=== PATIENT | female | born 1930 | race Caucasian/White ===

== ENCOUNTER 2017-11-08 20:08 | Inpatient (IN) | payer MEDICARE, OTHER ==
[~2017-11-08] VITALS: Ht 165.1 cm; Wt 62.8 kg
[~2017-11-08 20:08] MED LIST: LORTA5 PO; MOTR200T PO; TAB-TAB PO
[2017-11-08 20:12] VITALS: BP 142/84; PULSE 116; RESP 20; TEMP 102.9; O2SAT 95
[2017-11-08] MEDS ORDERED: AZITHROMYCIN INJ 500 MG in SODIUM CHLOR 0.9% 250 ML INJ 250 ML IV STA (20:27)
[2017-11-08] MEDS ORDERED: cefTRIAXone INJ 2,000 MG in SODIUM CHLORIDE 0.9% INJ 100 ML IV STA (20:27)
[2017-11-08] MEDS ORDERED: ACETAMINOPHEN 325 MG TAB PO ONE (20:30)
[2017-11-08] MEDS ORDERED: SODIUM CHLORID 0.9% 500 ML INJ 500 ML IV ONE (20:30)
[2017-11-08 20:34] VITALS: O2SAT 95
[2017-11-08 20:36] VITALS: BP 144/64; PULSE 109; RESP 18; O2SAT 95
--- NOTE | 2017-11-08 20:39 | PD ---
HPI Chief Complaint: Cold / Flu Symptoms Time Seen by Provider: 20:27 Travel History International Travel<30 days: No Contact w/Intl Traveler<30days: No Traveled to known affect area: No History of Present Illness HPI 87-year-old female presents to the emergency department by private transportation the care of her spouse for evaluation of cough and congestion 5 days. Patient recently returned from [place]. Patient does not describe any pleuritic pain. Patient said no lower extremity pain or swelling. Patient states the cough has been nonproductive. Patient has had chills and today was noted to have fever. Patient has no reported significant past medical history other than pneumonia approximately 20 years ago. Patient does not report any chest pain other than her chest wall is sore associated with coughing only has had no report of headache sinus pressure drainage sore throat earache neck pain back pain abdominal pain flank pain or extremity myalgias or arthralgias. Patient states cough has been persistent. Patient has taken NyQuil and Mucinex. Due to persistent symptoms patient contacted her son Dr. Kc who suggested that she come to the emergency room. Patient decided last evening not to come to the emergency room but due to persistent symptoms today arrives for evaluation at this time. [facility] Past Medical History Narrative Medical Heart murmur, pneumonia, hysterectomy, cataract surgery, breast biopsy, wrist surgery; occasional alcohol use; nursing notes reviewed Cancer: No Cardiovascular Problems: Yes (murmur that was discovered in 60's) Diabetes: No Endocrine: No Genitourinary: No Hepatitis: No Hiatal Hernia: No Immune Disorder: No Musculoskeletal: No Neurologic: No Psychiatric: No Reproductive: No Respiratory: Yes (PNEUMONIA) Thyroid Disease: No ?: Not Past Surgical History Abdominal Surgery: No AICD: No Cardiac Surgery: No Ear Surgery: No Endocrine Surgery: No Eye Surgery: Yes (CATARACTS, LENS IMPLANTS.) Genitourinary Surgery: No Gynecologic Surgery: Yes (BREAST BIOPSY, HYSTERECTOMY) Hysterectomy: Yes Joint Replacement: No Oral Surgery: No Pacemaker: No Thoracic Surgery: No Social History Tobacco Use: No Substance Use: No Allergies-Medications (Allergen,Severity, Reaction): Coded Allergies: No Known Allergies (Unverified Allergy, Unknown, 11/08/17) Reported Meds & Prescriptions Reported Meds & Active Scripts Active No Active Prescriptions or Reported Medications Review of Systems Except as stated in HPI: all other systems reviewed are Neg General / Constitutional: Positive: Fever, Chills HENT: Positive: Congestion Cardiovascular: Positive: Chest Pain or Discomfort (With coughing) Respiratory: Positive: Cough, Shortness of Breath (Mild), No: Wheezing Gastrointestinal: No: Nausea, Vomiting, Abdominal Pain Genitourinary: No: Dysuria, Flank Pain Musculoskeletal: No: Myalgias, Arthralgias Skin: No Rash Neurologic: No: Weakness Psychiatric: No: Anxiety Hematologic/Lymphatic: No: Lymph Node Enlargement Physical Exam Narrative GENERAL: Well-developed well-nourished pleasant female in no acute distress no respiratory distress; intermittent coughing; T: 102.9F: RR: 20; HR: 116; BP: 142 /82; O2 sat RA: 95% SKIN: Warm and dry. HEAD: Normocephalic. EYES: No scleral icterus. No injection or drainage. ENT: Airway patent NECK: Supple, trachea midline. No JVD or lymphadenopathy. CARDIOVASCULAR: Increased regular rate and rhythm without murmurs, gallops, or rubs. RESPIRATORY: Breath sounds equal bilaterally. No accessory muscle use. GASTROINTESTINAL: Abdomen soft, non-tender, nondistended. MUSCULOSKELETAL: No cyanosis, or edema. Radial and dorsalis pedis pulses 2+ to palpation bilaterally. BACK: Nontender without obvious deformity. No CVA tenderness. Data Data Last Documented VS Vital Signs Date Time Temp Pulse Resp B/P (MAP) Pulse Ox O2 Delivery O2 Flow Rate FiO2 11/08/17 21:43 99.9 107 18 122/54 (76) 96 Room Air Orders Orders Sepsis Workup Initiated (11/08/17 ) Complete Blood Count With Diff (11/08/17 20:27) Comprehensive Metabolic Panel (11/08/17 20:27) Lactic Acid Sepsis Protocol (11/08/17 20:27) Urinalysis - C+S If Indicated (11/08/17 20:27) Blood Culture (11/08/17 20:27) Chest, Single Ap (11/08/17 20:27) Blood Glucose (11/08/17 20:27) Ecg Monitoring (11/08/17 20:27) Iv Access Insert/Monitor (11/08/17 20:27) Oximetry (11/08/17 20:27) Acetaminophen (Tylenol) (11/08/17 20:30) Ceftriaxone Inj (Rocephin Inj) (11/08/17 20:27) Azithromycin Inj (Zithromax Inj) (11/08/17 20:27) Sodium Chlorid 0.9% 500 Ml Inj (Ns 500 M (11/08/17 20:30) B-Type Natriuretic Peptide (11/08/17 21:22) Electrocardiogram (11/08/17 ) Albuterol-Ipratropium Neb (Duoneb Neb) (11/08/17 21:30) Ckmb (Isoenzyme) Profile (11/08/17 20:50) Troponin I (11/08/17 20:50) Ketorolac Inj (Toradol Inj) (11/08/17 22:15) Ceftriaxone Inj (Rocephin Inj) (11/09/17 20:00) Azithromycin Inj (Zithromax Inj) (11/09/17 21:00) Albuterol-Ipratropium Neb (Duoneb Neb) (11/08/17 22:30) Budeson-Formot 160-4.5 Mcg Inh (Symbicor (11/09/17 09:00) Guaifenesin Er (Mucinex Er) (11/09/17 09:00) Admit To Inpatient (11/08/17 ) Vital Signs (Adult) Q4H (11/08/17 22:23) Activity Oob With Assistance (11/08/17 22:23) Internal Audit Director / Telemetry .CONTINUOUS (11/08/17 22:23) Intake + Output OLEG.QSHIFT (11/08/17 22:23) Sodium Chlor 0.9% 1000 Ml Inj (Ns 1000 M (11/08/17 22:23) Sodium Chloride 0.9% Flush (Ns Flush) (11/08/17 22:30) Sodium Chloride 0.9% Flush (Ns Flush) (11/09/17 09:00) Metoclopramide Inj (Reglan Inj) (11/08/17 22:30) Comprehensive Metabolic Panel (11/09/17 06:00) Complete Blood Count With Diff (11/09/17 06:00) Heparin Inj (Heparin Inj) (11/09/17 09:00) Acetaminophen (Tylenol) (11/08/17 22:30) Acetamin-Hydrocod 325-5 Mg ([place] 5-325 (11/08/17 22:30) Acetamin-Hydrocod 325-10 Mg ([place] 10-32 (11/08/17 22:30) Docusate Sodium-Senna (Stella-Colace) (11/09/17 09:00) Magnesium Hydroxide Liq (Milk Of Magnesi (11/08/17 22:30) Sennosides (Senokot) (11/08/17 22:30) Bisacodyl Supp (Dulcolax Supp) (11/08/17 22:30) Lactulose Liq (Lactulose Liq) (11/08/17 22:30) Inpatient Certification (11/08/17 ) Methylprednisolone So Succ Inj (Solumedr (11/08/17 22:30) Albuterol-Ipratropium Neb (Duoneb Neb) (11/08/17 22:30) Admit Order (Ed Use Only) (11/08/17 ) Internal Audit Director / Telemetry OLEG.Q8H (11/08/17 22:27) Diet Heart Healthy (11/09/17 Breakfast) Activity Oob With Assistance (11/08/17 22:27) Notify Dr: Other (11/08/17 22:27) Labs Laboratory Tests Test 11/08/17 20:50 White Blood Count 13.4 TH/MM3 Red Blood Count 3.68 MIL/MM3 Hemoglobin 10.5 GM/DL Hematocrit 31.4 % Mean Corpuscular Volume 85.2 FL Mean Corpuscular Hemoglobin 28.5 PG Mean Corpuscular Hemoglobin Concent 33.4 % Red Cell Distribution Width 12.7 % Platelet Count 295 TH/MM3 Mean Platelet Volume 6.8 FL Neutrophils (%) (Auto) 85.3 % Lymphocytes (%) (Auto) 8.7 % Monocytes (%) (Auto) 5.5 % Eosinophils (%) (Auto) 0.3 % Basophils (%) (Auto) 0.2 % Neutrophils # (Auto) 11.5 TH/MM3 Lymphocytes # (Auto) 1.2 TH/MM3 Monocytes # (Auto) 0.7 TH/MM3 Eosinophils # (Auto) 0.0 TH/MM3 Basophils # (Auto) 0.0 TH/MM3 CBC Comment DIFF FINAL Differential Comment Blood Urea Nitrogen 13 MG/DL Creatinine 0.76 MG/DL Random Glucose 128 MG/DL Total Protein 7.3 GM/DL Albumin 2.4 GM/DL Calcium Level 9.1 MG/DL Alkaline Phosphatase 112 U/L Aspartate Amino Transf (AST/SGOT) 22 U/L Alanine Aminotransferase (ALT/SGPT) 20 U/L Total Bilirubin 0.4 MG/DL Sodium Level 136 MEQ/L Potassium Level 4.0 MEQ/L Chloride Level 102 MEQ/L Carbon Dioxide Level 24.2 MEQ/L Anion Gap 10 MEQ/L Estimat Glomerular Filtration Rate 72 ML/MIN Lactic Acid Level 1.3 mmol/L Total Creatine Kinase 50 U/L Troponin I LESS THAN 0.02 NG/ML B-Type Natriuretic Peptide 129 PG/ML MDM Medical Decision Making Medical Screen Exam Complete: Yes Emergency Medical Condition: Yes Medical Record Reviewed: Yes Interpretation(s) lactic acid: 1.3, not elevated Last Impressions Chest X-Ray 11/08/172026 Signed Impressions: CONCLUSION: 1. COPD 2. Patchy bilateral airspace disease. CBC & BMP Diagram 11/08/17 20:50 Total Protein 7.3, Albumin 2.4 L, Calcium Level 9.1, Alkaline Phosphatase 112, Aspartate Amino Transf (AST/SGOT) 22, Alanine Aminotransferase (ALT/SGPT) 20, Total Bilirubin 0.4 Vital Signs Date Time Temp Pulse Resp B/P (MAP) Pulse Ox O2 Delivery O2 Flow Rate FiO2 11/08/17 21:43 99.9 107 18 122/54 (76) 96 Room Air 11/08/17 20:36 109 18 144/64 (90) 95 Room Air 11/08/17 20:34 95 Room Air 11/08/17 20:30 112 18 95 Room Air 11/08/17 20:12 102.9 116 20 142/84 (103) 95 Troponin I: Less than 0.02: Elevated; CK total 50, not BNP 129, minimally elevated EKG sinus tachycardia rate 106 septal infarct age indeterminate although noted in 2015 Differential Diagnosis Cough, pneumonia, bronchitis, sepsis; also to consider ACS, PE Narrative Course 87-year-old female with cough 5 days presents to the emergency department with fever mild tachycardia and chills; patient is used [id number] cough medication without symptom relief. Symptoms have worsened recently. Patient will be evaluated for sepsis and community-acquired pneumonia; IV access obtained patient placed on monitoring engineer with continuous pulse oximetry acetaminophen 650 mg by mouth administered Rocephin 2 g IV piggyback ordered along with azithromycin 500 mg IV piggyback ordered a bolus of 500 cc normal saline will be initially administered blood pressure is well controlled and patient reports she has been hydrating well; lactic acid and blood cultures obtained prior to administration of antibiotic; chest x-ray ordered. Patient will meet sepsis criteria based on vital signs and source of infection Sepsis Criteria SIRS Criteria (2 or more): Temp > 100.9 or < 96.8, Heart rate over 90 Sepsis Criteria (SIRS+source): Infect source susp/known (suspected pneumonia) Physician Communication Physician Communication discussed with Dr Alarcon --admit Diagnosis Primary Impression: Sepsis Additional Impressions: Pneumonia COPD (chronic obstructive pulmonary disease) Admitting Information Admitting Physician Requests: Admit Scripts No Active Prescriptions or Reported Meds Tracy Frank MD November 08, 2017 20:39
--- NOTE | 2017-11-08 20:49 | RADRPT ---
EXAM DATE: 11/08/2017 8:45 PM EDT AGE/SEX: 87 years / Female INDICATIONS: Fever, cough, and chest pain. CLINICAL DATA: This is the patient's initial encounter. Patient reports that signs and symptoms have been present for 4 - 6 days and indicates a pain score of 9/10. MEDICAL/SURGICAL HISTORY: None. . Hysterectomy. Left wrist. COMPARISON: No prior [facility] exams available for comparison. FINDINGS: Lungs are hyperinflated. Patchy airspace disease is identified in both lungs. Heart is normal in size. Osseous structures are intact. CONCLUSION: 1. COPD 2. Patchy bilateral airspace disease. Electronically signed by: Jesús Mclaughlin MD 11/08/2017 8:48 PM EDT
[2017-11-08 21:02] LABS: AUTOMATED NEUTROPHIL # 11.5 TH/MM3 (1.8-7.7); BASOPHIL % 0.2 % (0.0-2.0); EOSINOPHIL % 0.3 % (0.0-4.0); HEMATOCRIT 31.4 % (35.0-46.0); HEMOGLOBIN 10.5 GM/DL (11.6-15.3); LYMPH % 8.7 % (9.0-44.0); LYMPHOCYTE # 1.2 TH/MM3 (1.0-4.8); MEAN CELL VOLUME 85.2 FL (80.0-100.0); MEAN CORPUSCULAR HEMOGLOBIN 28.5 PG (27.0-34.0); MEAN CORPUSCULAR HGB CONC 33.4 % (32.0-36.0); MEAN PLATELET VOLUME 6.8 FL (7.0-11.0); MONO % 5.5 % (0.0-8.0); MONOCYTE # 0.7 TH/MM3 (0-0.9); NEUT % 85.3 % (16.0-70.0); PLATELET COUNT 295 TH/MM3 (150-450); RED BLOOD COUNT 3.68 MIL/MM3 (4.00-5.30); RED CELL DISTRIBUTION WIDTH 12.7 % (11.6-17.2); WHITE BLOOD COUNT 13.4 TH/MM3 (4.0-11.0)
[2017-11-08 21:12] LABS: CHLORIDE 102 MEQ/L (98-107); SODIUM (NA) 136 MEQ/L (136-145)
[2017-11-08 21:16] LABS: ALBUMIN 2.4 GM/DL (3.4-5.0); BICARBONATE 24.2 MEQ/L (21.0-32.0); BLOOD UREA NITROGEN 13 MG/DL (7-18); CALCIUM 9.1 MG/DL (8.5-10.1); GLUCOSE,RANDOM 128 MG/DL (74-106)
[2017-11-08 21:19] LABS: ALT (GPT) 20 U/L (10-53); AST (GOT) 22 U/L (15-37)
[2017-11-08 21:20] LABS: CREATININE 0.76 MG/DL (0.50-1.00); GLOMERULAR FILTRATION RATE 72 ML/MIN (>89)
[2017-11-08 21:21] LABS: TOTAL BILIRUBIN ADULT 0.4 MG/DL (0.2-1.0); TOTAL PROTEIN 7.3 GM/DL (6.4-8.2)
[2017-11-08 21:22] LABS: ALKALINE PHOSPHATASE 112 U/L (45-117)
[2017-11-08] MEDS ORDERED: RESP: ALBUTEROL 2.5 MG/IPRATROPIUM 0.5 MG NEB (SCH) NEB ONE ×2 (21:30→22:30)
[2017-11-08 21:43] VITALS: BP 122/54; PULSE 107; RESP 18; TEMP 99.9; O2SAT 96
[2017-11-08 21:44] LABS: TROPONIN I LESS THAN 0.02 NG/ML (0.02-0.05)
[2017-11-08] MEDS ORDERED: KETOROLAC TROMETHAMINE 30 MG/ML (IVP) VIAL IV PUSH ONE (22:15)
[2017-11-08] MEDS ORDERED: METOCLOPRAMIDE HCL 10 MG/2 ML VIAL IV PUSH PRN (22:30)
[2017-11-08] MEDS ORDERED: ACETAMINOPHEN/HYDROcodone 325 MG/10 MG TAB PO PRN (22:30)
[2017-11-08] MEDS ORDERED: LACTULOSE SYRUP 20 GM/30 ML CUP PO PRN (22:30)
[2017-11-08] MEDS ORDERED: MAGNESIUM HYDROXIDE SUSP 30 ML CUP PO PRN (22:30)
[2017-11-08] MEDS ORDERED: methylPREDNISolone SOD SUCC 125 MG/2 ML VIAL IV PUSH ONE (22:30)
[2017-11-08] MEDS ORDERED: ACETAMINOPHEN 325 MG TAB PO PRN (22:30)
[2017-11-08] MEDS ORDERED: SENNOSIDES 8.6 MG TAB PO PRN (22:30)
[2017-11-08] MEDS ORDERED: BISACODYL 10 MG SUPP RECTAL PRN (22:30)
[2017-11-08] MEDS ORDERED: SODIUM CHLORIDE 0.9% FLUSH 10 ML FLUSH IV FLUSH PRN (22:30)
[2017-11-08] MEDS ORDERED: ACETAMINOPHEN/HYDROcodone 325 MG/5 MG TAB PO PRN (22:30)
[2017-11-08] MEDS ORDERED: RESP: ALBUTEROL 2.5 MG/IPRATROPIUM 0.5 MG NEB (PRN) NEB (22:30)
[2017-11-08] MEDS: SODIUM CHLOR 0.9% 1000 ML INJ 1,000 ML IV SCH (22:55)
[2017-11-08 23:03] VITALS: BP 126/56; PULSE 98; RESP 18; O2SAT 96
[2017-11-08 23:45] VITALS: PULSE 111
[2017-11-09] VITALS (7 sets, daily range): BP systolic 104–119; BP diastolic 51–68; PULSE 84–112; RESP 18–20; TEMP 96–98.8; O2SAT 94–97
[2017-11-09 06:56] LABS: AUTOMATED NEUTROPHIL # 10.7 TH/MM3 (1.8-7.7); BASOPHIL % 0.1 % (0.0-2.0); EOSINOPHIL % 0.2 % (0.0-4.0); HEMATOCRIT 29.4 % (35.0-46.0); HEMOGLOBIN 9.8 GM/DL (11.6-15.3); LYMPH % 5.6 % (9.0-44.0); LYMPHOCYTE # 0.6 TH/MM3 (1.0-4.8); MEAN CELL VOLUME 85.3 FL (80.0-100.0); MEAN CORPUSCULAR HEMOGLOBIN 28.3 PG (27.0-34.0); MEAN CORPUSCULAR HGB CONC 33.2 % (32.0-36.0); MONO % 1.1 % (0.0-8.0); MONOCYTE # 0.1 TH/MM3 (0-0.9); PLATELET COUNT 260 TH/MM3 (150-450); RED BLOOD COUNT 3.45 MIL/MM3 (4.00-5.30); RED CELL DISTRIBUTION WIDTH 12.7 % (11.6-17.2); WHITE BLOOD COUNT 11.4 TH/MM3 (4.0-11.0)
[2017-11-09 07:04] LABS: CHLORIDE 109 MEQ/L (98-107); SODIUM (NA) 141 MEQ/L (136-145)
[2017-11-09 07:10] LABS: ALBUMIN 1.9 GM/DL (3.4-5.0); CALCIUM 8.4 MG/DL (8.5-10.1)
[2017-11-09 07:11] LABS: BICARBONATE 23.9 MEQ/L (21.0-32.0); BLOOD UREA NITROGEN 12 MG/DL (7-18); GLUCOSE,RANDOM 209 MG/DL (74-106)
[2017-11-09 07:13] LABS: ALT (GPT) 15 U/L (10-53); AST (GOT) 15 U/L (15-37); CREATININE 0.74 MG/DL (0.50-1.00); GLOMERULAR FILTRATION RATE 74 ML/MIN (>89)
[2017-11-09 07:15] LABS: TOTAL BILIRUBIN ADULT 0.3 MG/DL (0.2-1.0)
[2017-11-09] MEDS ORDERED: RESP: ALBUTEROL 2.5 MG/IPRATROPIUM 0.5 MG NEB (PRN) NEB (07:15)
[2017-11-09 07:16] LABS: ALKALINE PHOSPHATASE 86 U/L (45-117)
[2017-11-09] MEDS: RESP: ALBUTEROL 2.5 MG/IPRATROPIUM 0.5 MG NEB (SCH) NEB ×3 (07:23→20:28)
[2017-11-09 07:29] LABS: BILIRUBIN, URINE NEG (NEG); BLOOD, URINE SMALL (NEG); GLUCOSE,URINE NEG (NEG); KETONE, URINE NEG (NEG); NITRITE,URINE NEG (NEG); PH, URINE 5.5 (5.0-8.5); URINE COLOR YELLOW (YELLW/STRAW); URINE LEUKOCYTE ESTERASE NEG (NEG)
[2017-11-09 07:44] LABS: SQUAMOUS EPITHELIAL CELL URINE 0-2 /hpf (0-5); WBC, URINE 0-2 /hpf (0-5)
[2017-11-09] MEDS: SODIUM CHLOR 0.9% 1000 ML INJ 1,000 ML IV SCH ×2 (08:23→18:23)
--- NOTE | 2017-11-09 08:44 | HHI.HP ---
[facility] Service [facility] Primary Care Physician Denise Soto MD Admission Diagnosis sepsis; pneumonia; copd Diagnoses: (1) Sepsis Diagnosis: Principal (2) Pneumonia Diagnosis: Principal Chief Complaint: Fever Travel History International Travel<30 Days: No Contact w/Intl Traveler <30 Da: No Traveled to Known Affected Are: No Sepsis Criteria SIRS Criteria (2 or more): Temp > 100.9 or < 96.8, Heart rate over 90, WBC > 57932, < 4000 or > 10% bands Sepsis Criteria (SIRS+source): Infect source susp/known History of Present Illness Written by Rolf Harris, acting as scribe for Dr. Shepard on 11/09/17 at 08: 44. 87-year-old female with no chronic medical illnesses who presented to the emergency department because of fever. Patient indicates that she has had a one half week history of upper respiratory symptoms to include sore throat, hoarseness, nonproductive cough, soreness in her ribs whenever she coughs, fatigue. She has went to [place] to visit family and was returned 1 week ago. Patient states that she was symptomatic during her stay in [place]. When she got home her son Justyna Yamini try to convince her to get evaluated with at least a chest x-ray. She was reluctant to do so. She states that she was at home and was using NyQuil and Mucinex. However her symptoms never improved she had continued fatigue, persistent cough, decreased appetite, continued fever. Yesterday she took her temperature at home with a digital thermometer and it read 107. She went to her and they brought her to the hospital for evaluation. On presentation she had a fever of 102.9. Workup indicated sepsis criteria with pneumonia. ER physician recommended admission for further evaluation and management. This morning the patient states that she is feeling much better. She is a afebrile at this time. She is no longer with sepsis criteria. Patient has responded well to treatment thus far. Patient denies any chest pain, shortness of breath, dyspnea, abdominal pain, diarrhea, constipation, leg pain, lower extremity edema. Review of Systems Constitutional: COMPLAINS OF: Fever, Chills, Change in appetite Ears, nose, mouth, throat: COMPLAINS OF: Throat pain, Hoarseness Respiratory: COMPLAINS OF: Cough Except as stated in HPI: all other systems reviewed are Neg Past Family Social History Past Medical History History of murmur Past Surgical History Hysterectomy Cataract surgery Multiple breast biopsies Left wrist surgery Reported Medications No home medications Allergies: Coded Allergies: No Known Allergies (Unverified Allergy, Unknown, 11/08/17) Family History Family history was reviewed and significant for mother that was in good health, father had colon cancer Social History Patient quit smoking at age 49, prior to that she smoked up to half a pack of cigarettes a day since she was 17 years old. Drinks alcohol occasionally. Denies any illicit drug Physical Exam Vital Signs Vital Signs Date Time Temp Pulse Resp B/P (MAP) Pulse Ox O2 Delivery O2 Flow Rate FiO2 11/09/17 07:40 96.1 88 20 109/64 (79) 95 11/09/17 04:00 97.6 91 20 115/60 (78) 96 11/09/17 00:00 98.8 112 20 104/51 (68) 94 11/08/17 23:45 111 11/08/17 23:28 102 18 96 11/08/17 23:03 98 18 126/56 (79) 96 Room Air 11/08/17 21:43 99.9 107 18 122/54 (76) 96 Room Air 11/08/17 20:36 109 18 144/64 (90) 95 Room Air 11/08/17 20:34 95 Room Air 11/08/17 20:30 112 18 95 Room Air 11/08/17 20:12 102.9 116 20 142/84 (103) 95 Physical Exam GENERAL: Well-developed, well-nourished, in no acute distress. alert and orientated HEENT: Head is normocephalic without any lesions or masses noted. Facial features are symmetric. Eyes: Pupils equal round reactive to light. Extraocular muscles are intact. Conjunctivae were clear. Oropharyngeal: Pharynx without any erythema edema. Tongue is midline without deviation. Buccal mucosa is moist without any masses or lesions NECK: Supple without any masses. Trachea midline no deviation. No JVD, no bruits are appreciated CARDIAC: Regular rhythm, regular rate. S1/S2 are heard. 3/6 ejection murmur noted in aortic and mitral region. No gallops or rubs. LUNGS: Clear to auscultation bilaterally. No wheeze, rhonchi or rales. No use of accessory muscles on inspiration or expiration. ABDOMEN: Soft, nontender. Nondistended. Bowel sounds heard in all 4 quadrants. No organomegaly or masses. Negative rebound, negative guarding EXTREMITIES: No edema, pulses are equal bilaterally. No cyanosis or clubbing NEUROLOGY: Mood and affect appear appropriate. Cranial nerves II through XII grossly intact. Muscle strength 5/5 in upper and lower extremities bilaterally. Deep tendon reflexes are 2+ in upper and lower extremities bilaterally. Laboratory Laboratory Tests Test 11/08/17 20:50 11/09/17 06:07 11/09/17 07:15 White Blood Count 13.4 11.4 Red Blood Count 3.68 3.45 Hemoglobin 10.5 9.8 Hematocrit 31.4 29.4 Mean Corpuscular Volume 85.2 85.3 Mean Corpuscular Hemoglobin 28.5 28.3 Mean Corpuscular Hemoglobin Concent 33.4 33.2 Red Cell Distribution Width 12.7 12.7 Platelet Count 295 260 Mean Platelet Volume 6.8 7.0 Neutrophils (%) (Auto) 85.3 93.0 Lymphocytes (%) (Auto) 8.7 5.6 Monocytes (%) (Auto) 5.5 1.1 Eosinophils (%) (Auto) 0.3 0.2 Basophils (%) (Auto) 0.2 0.1 Neutrophils # (Auto) 11.5 10.7 Lymphocytes # (Auto) 1.2 0.6 Monocytes # (Auto) 0.7 0.1 Eosinophils # (Auto) 0.0 0.0 Basophils # (Auto) 0.0 0.0 CBC Comment DIFF FINAL DIFF FINAL Differential Comment Blood Urea Nitrogen 13 12 Creatinine 0.76 0.74 Random Glucose 128 209 Total Protein 7.3 6.0 Albumin 2.4 1.9 Calcium Level 9.1 8.4 Alkaline Phosphatase 112 86 Aspartate Amino Transf (AST/SGOT) 22 15 Alanine Aminotransferase (ALT/SGPT) 20 15 Total Bilirubin 0.4 0.3 Sodium Level 136 141 Potassium Level 4.0 4.0 Chloride Level 102 109 Carbon Dioxide Level 24.2 23.9 Anion Gap 10 8 Estimat Glomerular Filtration Rate 72 74 Lactic Acid Level 1.3 Total Creatine Kinase 50 Troponin I LESS THAN 0.02 B-Type Natriuretic Peptide 129 Urine Collection Type CATH Urine Color YELLOW Urine Turbidity CLEAR Urine pH 5.5 Urine Specific [place] LESS/EQUAL 1.005 Urine Protein NEG Urine Glucose (UA) NEG Urine Ketones NEG Urine Occult Blood SMALL Urine Nitrite NEG Urine Bilirubin NEG Urine Urobilinogen 0.2 Urine Leukocyte Esterase NEG Urine WBC 0-2 Urine Squamous Epithelial Cells 0-2 Microscopic Urinalysis Comment CULT NOT INDICATED Date/Time Source Procedure Growth Status 11/08/17 20:55 Blood Peripheral Aerobic Blood Culture Pending Received 11/08/17 20:55 Blood Peripheral Anaerobic Blood Culture Pending Received Result Diagram: 11/09/17 0607 11/09/17 0607 Imaging Last Impressions Chest X-Ray 11/08/172026 Signed Impressions: CONCLUSION: 1. COPD 2. Patchy bilateral airspace disease. Septic Shock Reassessment Septic shock perfusion: reassessment completed Caprini VTE Risk Assessment Caprini VTE Risk Assessment: Mod/High Risk (score >= 2) Caprini Risk Assessment Model Point Value = 1 Point Value = 2 Point Value = 3 Point Value = 5 Age 41-60 Minor surgery BMI > 25 kg/m2 Swollen legs Varicose veins or History of unexplained or recurrent spontaneous Oral contraceptives or hormone replacement Sepsis (< 1 month) Serious lung disease, including pneumonia (< 1 month) Abnormal pulmonary function Acute myocardial infarction Congestive heart failure (< 1 month) History of inflammatory bowel disease Medical patient at bed rest Age 61-74 Arthroscopic surgery Major open surgery (> 45 min) Laparoscopic surgery (> 45 min) Malignancy Confined to bed (> 72 hours) Immobilizing plaster cast Central venous access Age >= 75 History of VTE Family history of VTE Factor V Leiden Prothrombin [id number] Lupus anticoagulant Anticardiolipin antibodies Elevated serum homocysteine Heparin-induced thrombocytopenia Other congenital or acquired thrombophilia Stroke (< 1 month) Elective arthroplasty Hip, pelvis, or leg fracture Acute spinal cord injury (< 1 month) Prophylaxis Regimen Total Risk Factor Score Risk Level Prophylaxis Regimen 0-1 Low Early ambulation 2 Moderate Order ONE of the following: *Sequential Compression Device (SCD) *Heparin 5000 units SQ BID 3-4 Higher Order ONE of the following medications: *Heparin 5000 units SQ TID *Enoxaparin/Lovenox 40 mg SQ daily (WT < 150 kg, CrCl > 30 mL/min) *Enoxaparin/Lovenox 30 mg SQ daily (WT < 150 kg, CrCl > 10-29 mL/min) *Enoxaparin/Lovenox 30 mg SQ BID (WT < 150 kg, CrCl > 30 mL/min) AND/OR *Sequential Compression Device (SCD) 5 or more Highest Order ONE of the following medications: *Heparin 5000 units SQ TID (Preferred with Epidurals) *Enoxaparin/Lovenox 40 mg SQ daily (WT < 150 kg, CrCl > 30 mL/min) *Enoxaparin/Lovenox 30 mg SQ daily (WT < 150 kg, CrCl > 10-29 mL/min) *Enoxaparin/Lovenox 30 mg SQ BID (WT < 150 kg, CrCl > 30 mL/min) AND *Sequential Compression Device (SCD) Assessment and Plan Problem List: (1) Sepsis ICD Code: A41.9 - Sepsis, unspecified organism Status: Acute (2) Pneumonia ICD Code: J18.9 - Pneumonia, unspecified organism Status: Acute Assessment and Plan Sepsis, resolved -Patient met criteria on admission with fever, leukocytosis, tachycardia, pneumonia -Chest x-ray did indicate patchy airspace disease -Urinalysis was clear -Patient was started on Rocephin and Zithromax -Blood cultures are pending -Obtain influenza testing Pneumonia -Continue treatment for community acquired pneumonia with Rocephin and Zithromax -Continue nebulizer treatments every 6 hours while awake and every 2 hours as needed -Continue Symbicort -Continue Mucinex -Try to obtain sputum culture Hyperglycemia -No history of diabetes, likely secondary to steroid use -Check hemoglobin A1c DVT prevention -Subcutaneous heparin This note was transcribed by david Harris. I, Dr. Senthil Shepard personally performed the history, physical exam, and medical decision making; and confirmed the accuracy of the information in the transcribed note. Authenticated by Dr. Senthil Shepard on 11/09/17 at 08:44. Code Status Full code Discussed Condition With Patient, nursing staff Physician Certification 2 Midnight Certification Type: Admission for Inpatient Services Order for Inpatient Services The services are ordered in accordance with Medicare regulations or non- Medicare payer requirements, as applicable. In the case of services not specified as inpatient-only, they are appropriately provided as inpatient services in accordance with the 2-midnight benchmark. Estimated LOS (days): 2 days is the estimated time the patient will need to remain in the hospital, assuming treatment plan goals are met and no additional complications. Post-Hospital Plan: Not yet determined Rolf Harris November 09, 2017 08:44 Senthil Shepard MD November 09, 2017 08:45
[2017-11-09] MEDS: SODIUM CHLORIDE 0.9% FLUSH 10 ML FLUSH IV FLUSH SCH ×2 (09:00→21:47)
[2017-11-09] MEDS: BUDESONIDE-FORMOTEROL 160/4.5 MCG INHALER INH SCH ×2 (10:40→22:21)
[2017-11-09] MEDS: DOCUSATE SODIUM 50 MG/SENNA 8.6 MG TAB PO SCH ×2 (10:41→21:46)
[2017-11-09] MEDS: guaiFENesin E.R. 600 MG TAB PO SCH ×2 (10:41→21:46)
[2017-11-09] MEDS: HEPARIN SODIUM - SQ 10,000 UNITS/ML VIAL SQ SCH ×2 (10:41→21:48)
--- NOTE | 2017-11-09 13:59 | EKG ---
Date Performed: 11/08/2017 Time Performed: 21:30:25 PTAGE: 87 years EKG: SINUS TACHYCARDIA WITH SINUS ARRYTHMIA. ATRIAL ABNORMALITY SLIGHT RIGHT VENTRICULAR CONDUCT ION DISTURBANCES POOR INITIAL ANTERIOR FORCES WHICH MAY BE NORMAL VARIANT, CANNOT EXCLUDE OLD ANTEROS EPTAL VT ABNORMAL ECG Compared to PREVIOUS TRACING , sinus arryhthmia is new, PVCs no longer present. Right ventricular con duction disturbance is new. PREVIOUS TRACIN07/11/2014 11.44 DOCTOR: Shay Drake Interpretating Date/Time 11/09/2017 13:58:25
[2017-11-09] MEDS ORDERED: cefTRIAXone INJ 1,000 MG in SODIUM CHLORIDE 0.9% INJ 100 ML IV SCH (20:00)
[2017-11-09] MEDS ORDERED: AZITHROMYCIN INJ 500 MG in SODIUM CHLOR 0.9% 250 ML INJ 250 ML IV SCH (21:00)
[2017-11-10 00:04] VITALS: BP 101/51; PULSE 101; RESP 20; TEMP 97; O2SAT 95
[2017-11-10 04:00] VITALS: BP 124/59; PULSE 96; RESP 20; TEMP 96.4; O2SAT 96
[2017-11-10] MEDS: SODIUM CHLOR 0.9% 1000 ML INJ 1,000 ML IV SCH (05:54)
[2017-11-10] MEDS: BUDESONIDE-FORMOTEROL 160/4.5 MCG INHALER INH SCH (07:42)
[2017-11-10] MEDS: HEPARIN SODIUM - SQ 10,000 UNITS/ML VIAL SQ SCH (07:43)
[2017-11-10] MEDS: DOCUSATE SODIUM 50 MG/SENNA 8.6 MG TAB PO SCH (07:43)
[2017-11-10] MEDS: guaiFENesin E.R. 600 MG TAB PO SCH (07:43)
[2017-11-10] MEDS: SODIUM CHLORIDE 0.9% FLUSH 10 ML FLUSH IV FLUSH SCH (07:46)
[2017-11-10] MEDS: RESP: ALBUTEROL 2.5 MG/IPRATROPIUM 0.5 MG NEB (SCH) NEB ×2 (08:15→13:50)
[2017-11-10 08:17] VITALS: O2SAT 94
[2017-11-10 08:26] VITALS: BP 143/63; PULSE 90; RESP 20; TEMP 96.6; O2SAT 93
--- NOTE | 2017-11-10 10:02 | HHI.PR ---
Subjective Remarks Follow-up sepsis/pneumonia November 10, 2017-patient seen and examined, currently afebrile and denies any shortness of breath. States she feels much better. Objective Vitals Vital Signs Date Time Temp Pulse Resp B/P (MAP) Pulse Ox O2 Delivery O2 Flow Rate FiO2 11/10/17 08:26 96.6 90 20 143/63 (89) 93 11/10/17 08:17 94 21 11/10/17 04:00 96.4 96 20 124/59 (80) 96 11/10/17 00:04 97.0 101 20 101/51 (68) 95 11/09/17 21:12 98.1 108 20 114/58 (76) 95 11/09/17 20:25 96.0 105 20 119/68 (85) 97 11/09/17 13:33 96.3 96 18 105/57 (73) 95 11/09/17 11:09 96.2 84 20 114/68 (83) 95 I/O 11/09/17 11/09/17 11/09/17 11/10/17 11/10/17 11/10/17 07:00 15:00 23:00 07:00 15:00 23:00 Intake Total 760 ml 700 ml 480 ml 1100 ml Balance 760 ml 700 ml 480 ml 1100 ml Intake Oral 60 ml 480 ml IV Total 700 ml 700 ml 1100 ml # Voids 1 6 2 # Bowel Movements 1 Result Diagram: 11/09/17 0607 11/09/17 0607 Imaging Last Impressions Chest X-Ray 11/08/172026 Signed Impressions: CONCLUSION: 1. COPD 2. Patchy bilateral airspace disease. Objective Remarks GENERAL: NAD SKIN: Warm and dry. HEAD: Normocephalic. EYES: No scleral icterus. No injection or drainage. NECK: Supple, trachea midline. No JVD or lymphadenopathy. CARDIOVASCULAR: Regular rate and rhythm without murmurs, gallops, or rubs. RESPIRATORY: Breath sounds equal bilaterally. No accessory muscle use. GASTROINTESTINAL: Abdomen soft, non-tender, nondistended. MUSCULOSKELETAL: No cyanosis, or edema. BACK: Nontender without obvious deformity. No CVA tenderness. A/P Problem List: (1) Sepsis ICD Code: A41.9 - Sepsis, unspecified organism Status: Resolved (2) Pneumonia ICD Code: J18.9 - Pneumonia, unspecified organism Status: Acute Assessment and Plan 87-year-old female with Sepsis, resolved -Chest x-ray did indicate patchy airspace disease -Urinalysis was clear -Currently on Rocephin and Zithromax -Blood cultures NTD -Influenza testing negative Pneumonia -Continue treatment for community acquired pneumonia with Rocephin and Zithromax -Continue nebulizer treatments every 6 hours while awake and every 2 hours as needed -Continue Symbicort -Continue Mucinex -Try to obtain sputum culture Hyperglycemia -No history of diabetes, likely secondary to steroid use -Hemoglobin A1c pending DVT prevention -Subcutaneous heparin Senthil Shepard MD November 10, 2017 10:02
--- NOTE | 2017-11-10 10:06 | HHI.DS ---
Discharge Summary Admission Date November 08, 2017 at 22:28 Discharge Date: November 10, 2017 Admitting Diagnosis sepsis; pneumonia; copd (1) Sepsis ICD Code: A41.9 - Sepsis, unspecified organism Status: Resolved (2) Pneumonia ICD Code: J18.9 - Pneumonia, unspecified organism Status: Acute Procedures None Brief History - From Admission Written by Rolf Harris, acting as scribe for Dr. Shepard on 11/09/17 at 08: 44. 87-year-old female with no chronic medical illnesses who presented to the emergency department because of fever. Patient indicates that she has had a one half week history of upper respiratory symptoms to include sore throat, hoarseness, nonproductive cough, soreness in her ribs whenever she coughs, fatigue. She has went to [place] to visit family and was returned 1 week ago. Patient states that she was symptomatic during her stay in [place]. When she got home her son Dr. Kc try to convince her to get evaluated with at least a chest x-ray. She was reluctant to do so. She states that she was at home and was using NyQuil and Mucinex. However her symptoms never improved she had continued fatigue, persistent cough, decreased appetite, continued fever. Yesterday she took her temperature at home with a digital thermometer and it read 107. She went to her and they brought her to the hospital for evaluation. On presentation she had a fever of 102.9. Workup indicated sepsis criteria with pneumonia. ER physician recommended admission for further evaluation and management. This morning the patient states that she is feeling much better. She is a afebrile at this time. She is no longer with sepsis criteria. Patient has responded well to treatment thus far. Patient denies any chest pain, shortness of breath, dyspnea, abdominal pain, diarrhea, constipation, leg pain, lower extremity edema. CBC/BMP: 11/09/17 0607 11/09/17 0607 Significant Findings Laboratory Tests Test 11/08/17 20:50 11/09/17 06:07 11/09/17 07:15 White Blood Count 13.4 TH/MM3 (4.0-11.0) 11.4 TH/MM3 (4.0-11.0) Red Blood Count 3.68 MIL/MM3 (4.00-5.30) 3.45 MIL/MM3 (4.00-5.30) Hemoglobin 10.5 GM/DL (11.6-15.3) 9.8 GM/DL (11.6-15.3) Hematocrit 31.4 % (35.0-46.0) 29.4 % (35.0-46.0) Mean Platelet Volume 6.8 FL (7.0-11.0) Neutrophils (%) (Auto) 85.3 % (16.0-70.0) 93.0 % (16.0-70.0) Lymphocytes (%) (Auto) 8.7 % (9.0-44.0) 5.6 % (9.0-44.0) Neutrophils # (Auto) 11.5 TH/MM3 (1.8-7.7) 10.7 TH/MM3 (1.8-7.7) Random Glucose 128 MG/DL (74-106) 209 MG/DL (74-106) Albumin 2.4 GM/DL (3.4-5.0) 1.9 GM/DL (3.4-5.0) Estimat Glomerular Filtration Rate 72 ML/MIN (>89) 74 ML/MIN (>89) Troponin I LESS THAN 0.02 NG/ML B-Type Natriuretic Peptide 129 PG/ML (0-100) Lymphocytes # (Auto) 0.6 TH/MM3 (1.0-4.8) Total Protein 6.0 GM/DL (6.4-8.2) Calcium Level 8.4 MG/DL (8.5-10.1) Chloride Level 109 MEQ/L (98-107) Urine Occult Blood SMALL (NEG) Imaging Last Impressions Chest X-Ray 11/08/172026 Signed Impressions: CONCLUSION: 1. COPD 2. Patchy bilateral airspace disease. PE at Discharge GENERAL: NAD SKIN: Warm and dry. HEAD: Normocephalic. EYES: No scleral icterus. No injection or drainage. NECK: Supple, trachea midline. No JVD or lymphadenopathy. CARDIOVASCULAR: Regular rate and rhythm without murmurs, gallops, or rubs. RESPIRATORY: Breath sounds equal bilaterally. No accessory muscle use. GASTROINTESTINAL: Abdomen soft, non-tender, nondistended. MUSCULOSKELETAL: No cyanosis, or edema. BACK: Nontender without obvious deformity. No CVA tenderness. Hospital Course While in hospital, patient was treated for sepsis and pneumonia for which she was started on IV antibiotics along with bronchodilator respiratory treatment with improvement of symptoms. Culture will monitor and patient tested negative for influenza. She was continued on treatment for other chronic medical conditions. Physical therapy was consulted. DVT and GI progressing provided. Prior to discharge, patient conditions improving vitals remained stable. Pt Condition on Discharge: Good Discharge Disposition: Discharge Home Discharge Time: <= 30 minutes Discharge Instructions DIET: Follow Instructions for: Heart Healthy Diet Activities you can perform: Regular-No Restrictions Senthil Shepard MD November 10, 2017 10:06
[2017-11-10] MEDS ORDERED: guaiFENesin ER PO (10:08)
[2017-11-10] MEDS ORDERED: AZIT500T2 PO (10:08)
[2017-11-10] MEDS ORDERED: VENTAER INH (10:11)
[2017-11-10] MEDS ORDERED: IPRA17I INH (10:11)
[2017-11-10 12:00] VITALS: BP 124/57; PULSE 90; RESP 18; TEMP 96.6; O2SAT 97
[2017-11-10 16:25] LABS: HEMOGLOBIN A1C 5.6 % (4.3-6.0)
== END 2017-11-10 14:55 | disposition home or self-care (01) | DRG 871 ==
LOC: PHED 20:08 → PHEDA 22:28 → PH3A 23:19
PROVIDERS: ADMIT Hospitalist; ATTEND Hospitalist
DX: A41.9 Sepsis, unspecified organism (principal); J18.9 Pneumonia, unspecified organism; J44.0 Chronic obstructive pulmonary disease with (acute) lower respiratory infection; R73.9 Hyperglycemia, unspecified; T38.0X5A Adverse effect of glucocorticoids and synthetic analogues, initial encounter; Z87.891 Personal history of nicotine dependence
CPT/HCPCS: 71045; 80053; 81001; 82550; 83036; 83605; 83880; 84484; 85025; 87040; 87804; 93005; 94640; 94664; 96365; 96367; 96375; J0456; J0696; J1644; J1885; J2930; J7030; J7040; J7050